=== PATIENT | female | born 1970 | race Two or more races ===

== ENCOUNTER 2018-02-22 01:44 | Emergency (ER) | payer MEDICAID, OTHER ==
[2018-02-22] MEDS: ALPRAZOLAM 1 MG TAB PO (02:41)
== END 2018-02-22 03:25 | disposition home or self-care (01) ==
LOC: FTE 01:44
DX: F41.9 Anxiety disorder, unspecified (principal); I10 Essential (primary) hypertension; J45.909 Unspecified asthma, uncomplicated
CPT/HCPCS: 99283; Z7502